=== PATIENT | male | born 1995 | race Caucasian/White ===

== ENCOUNTER 2016-09-13 13:54 | Emergency (ER) | payer OTHER ==
[~2016-09-13] VITALS: Ht 172.7 cm; Wt 65.0 kg
[~2016-09-13 13:54] MED LIST: Z.0.NO CURRENT MEDS
[2016-09-13 13:56] VITALS: BP 142/80; PULSE 59; RESP 15; TEMP 97.5; O2SAT 96
--- NOTE | 2016-09-13 14:14 | PD ---
HPI . left heel pain since 2 days ago Chief Complaint: Injury Time Seen by Provider: 14:14 Travel History International Travel<30 days: No Contact w/Intl Traveler<30days: No Traveled to known affect area: No History of Present Illness HPI 20 yr old male with no PMH here c/o left heel pain for about 2 days. Apparently patient decided to jump across a 3 foot [place] and landed badly on his left heel. He is now complaining of pain when standing that is 7/10 without any radiation. If he is at rest pain is 0/10. He denies any other issues. He is accompanied by his girlfriend Jacquelin. PFSH Past Medical History Medical History: Denies Significant Hx Diminished Hearing: No Tetanus Vaccination: < 5 Years Influenza Vaccination: No Past Surgical History Surgical History: No Previous Surgery Social History Alcohol Use: Yes (3 beers, twice weekly) Tobacco Use: No Substance Use: No Allergies-Medications (Allergen,Severity, Reaction): Coded Allergies: Penicillin (Verified Allergy, Unknown, CHILD, 09/13/16) Reported Meds & Prescriptions Reported Meds & Active Scripts Active No Active Prescriptions or Reported Medications Review of Systems General / Constitutional: No: Fever Eyes: No: Visual changes HENT: No: Headaches Cardiovascular: No: Chest Pain or Discomfort Respiratory: No: Shortness of Breath Gastrointestinal: No: Abdominal Pain Genitourinary: No: Dysuria Musculoskeletal: Positive: Pain (left heel pain) Skin: No Rash Neurologic: No: Weakness Psychiatric: No: Depression Endocrine: No: Polydipsia Hematologic/Lymphatic: No: Easy Bruising Physical Exam Narrative GENERAL: AAO x 3, no acute distress, Well-nourished, well-developed patient. SKIN: Warm and dry. No visible rashes or bruising. HEAD: Normocephalic and atraumatic. EYES: No scleral icterus. No injection or drainage. ENT: No nasal drainage noted. Mucous membranes pink. Airway patent. NECK: Supple, trachea midline. No JVD. CARDIOVASCULAR: Regular rate and rhythm without murmurs, gallops, or rubs. RESPIRATORY: Breath sounds equal bilaterally. No accessory muscle use. No rhonchi or rales. GASTROINTESTINAL: Abdomen soft, non-tender, nondistended. EXTREMITIES: No cyanosis or edema. mild ecchymosis and point tenderness of left lateral heel, otherwise normal examination. BACK: Nontender without obvious deformity. No CVA tenderness. PSYCH: AAO x 3, normal affect. Data Data Last Documented VS Vital Signs Date Time Temp Pulse Resp B/P Pulse Ox O2 Delivery O2 Flow Rate FiO2 09/13/16 13:56 97.5 59 15 142/80 96 Orders Foot, Heel Only ([id number]) (09/13/16 14:18) Post Op Boot (Shoe) (09/13/16 ) MDM Medical Decision Making Medical Screen Exam Complete: Yes Emergency Medical Condition: Yes Differential Diagnosis heel contusion, less likely heel fracture, less likely Achilles injury Narrative Course 20 yr old male with no PMH here c/o left heel pain for about 2 days. Apparently patient decided to jump across a 3 foot [place] and landed badly on his left heel. He is now complaining of pain when standing that is 7/10 without any radiation. If he is at rest pain is 0/10. He denies any other issues. He is accompanied by his girlfriend Jacquelin. Patient seen and examined. Recommend heel x-ray. Results below. Advised to use ice and ibuprofen for inflammation. Patient provided with a postop shoe to help keep pressure off of this extremity. He will continue to use his crutches that he came in with. He is aware there is no acute fracture, but I advised him to treat it as such so that I can heal. Last 24 hours Impressions Foot X-Ray 09/13/16 1418 Signed Impressions: Service Date/Time: Tuesday, September 13, 2016 14:21 - CONCLUSION: No acute abnormality is identified. Juan Starr MD Patient verbalized understanding of instructions, questions were answered, and thanked me for their care. I advised them if their condition worsens, please return to the nearest emergency room for further care. Diagnosis Primary Impression: Foot pain, left Patient Instructions: Foot Contusion (ED), General Instructions Additional Instructions: Please return to emergency department if your symptoms return or worsen. Follow up with your primary care provider. Take medications as prescribed. We provided you with a postop boot to help keep pressure off this foot. Use Tylenol or Motrin as needed for pain. Scripts No Active Prescriptions or Reported Meds Disposition: 01 DISCHARGE HOME Condition: Stable Alvina Ayala Sep 13, 2016 14:14
--- NOTE | 2016-09-13 14:40 | RADHPO ---
EXAM DATE/TIME: 09/13/2016 14:21 [facility] COMPARISON: No previous studies available for comparison. INDICATIONS : Left heel pain for four days. Patient states he jumped and landed on a hard surface. MEDICAL HISTORY : None. SURGICAL HISTORY : None. ENCOUNTER: Initial ACUITY: 4 - 6 days PAIN SCORE: 7/10 LOCATION: Left heel. FINDINGS: Two view examination of the left heel demonstrates the trabecula to be intact with no evidence of fra cture. There is a normal calcaneal angle. The soft tissues are of normal thickness. CONCLUSION: No acute abnormality is identified. Juan Starr MD on September 13, 2016 at 14:37 Board Certified Radiologist. This report was verified electronically.
== END 2016-09-13 15:04 | disposition home or self-care (01) ==
LOC: PHEFT 13:54
DX: M79.672 Pain in left foot (principal); X58.XXXA Exposure to other specified factors, initial encounter; Y93.39 Activity, other involving climbing, rappelling and jumping off; Y99.8 Other external cause status
CPT/HCPCS: 73650; 99283; L3260